=== PATIENT | female | born 1955 | race Caucasian/White ===

== ENCOUNTER 2023-02-09 08:14 | Outpatient (CLI) | payer MEDICARE, SELFPAY ==
--- NOTE | ~2023-02-09 | XR_ITS ---
EXAMINATION: XR UGIAC w barium swallow DATE: 02/09/2023 09:22 INDICATION: Dysphagia, oropharyngeal phase. TECHNIQUE: The patient drank thick barium, gas-producing crystals, and thin barium. Fluoroscopy of th e esophagus, stomach, and proximal small bowel was performed. Fluoroscopy exposure time was 0.7 minut es. The total number of images was 275. Total dose-area product was 0.929 Gy-cm^2. COMPARISON: None. FINDINGS: There is no mass or stricture of the esophagus. Esophageal motility is normal. There is no hiatal hernia. There was no gastroesophageal reflux with provocative maneuvers. The stomach and proxi mal small bowel show normal folding patterns. IMPRESSION: 1. Normal upper gastrointestinal series and esophagram. Reviewed, dictated and finalized at location A.
--- NOTE | ~2023-02-09 | XR_ITS ---
EXAMINATION: XR barium swallow modified DATE: 02/09/2023 09:22 INDICATION: Dysphagia, oropharyngeal phase. TECHNIQUE: The patient was given barium-containing material of multiple consistencies to swallow by t elenita speech pathologist while I performed fluoroscopy. Fluoroscopy exposure time was 1.0 minutes. The n umber of fluoroscopy images saved to the PACS was 1. FINDINGS: There is no laryngeal penetration or aspiration. IMPRESSION: 1. No laryngeal penetration or aspiration. 2. Please refer to the speech therapy report for recommendations. Reviewed, dictated and finalized at location A.
--- NOTE | 2023-02-09 17:36 | REHSTMBS ---
Assessment and note entered by Yaquelin Myeers, SENIOR MEDICAL BILLING SPECIALIST Modified Barium Swallow Evaluation Feeding Type Recommended Oral Food Consistency Regular, Level 7 Liquid Consistency Thin (0) ST Clinical Summary MODIFIED BARIUM SWALLOW STUDY This patient was seen for a Modified Barium Swallow study at the request of her physician. She reports a history of food hanging up in her throat. She stated that she has had an EGD procedure in the past that facilitated improved swallows of solid foods and wonders if she may require another procedure. Patient was viewed in the lateral position to the level of C5/C6. She was presented with thin liquid contrast medium, pudding mixed with semi-solid contrast medium, then cracker and fruit both coated with the semi-solid mixture. She exhibited some mild spilling of material off the base of tongue into the valleculae prior to initiating swallows however no evidence of penetration or aspiration. Direct Speech Therapy is not indicated at this time however patient was instructed in the use of head flexion and hard, effortful swallows to facilitate movement of material through the pharynx. She is referred back to her physician for further assessment of her complaints. Thank you for this referral.
== END 2023-02-09 08:15 | disposition home or self-care (01) ==
PROVIDERS: PCP Family Medicine; Visit Provider Nurse Practitioner
DX: R13.12 Dysphagia, oropharyngeal phase (principal)
CPT/HCPCS: 74246; 92611